=== PATIENT | male | born 1970 | race Caucasian/White ===

== ENCOUNTER 2018-02-01 15:13 | Emergency (ER) | payer MEDICARE ==
[2018-02-01 15:44] LABS: INFLUENZA A NEGATIVE (NEGATIVE); INFLUENZA B POSITIVE (NEGATIVE)
[2018-02-01] MEDS ORDERED: OSTELTAMIVIR 75 MG CAP PO ONE (16:52)
[2018-02-01] MEDS ORDERED: IBUPROFEN 600 MG TABLET PO ONE (16:52)
--- NOTE | 2018-02-01 16:56 | Emergency Department Record ---
History of Present Illness - General Chief Complaint: Fever Stated Complaint: COUGH AND FEVER Time Seen by Provider: 02/01/18 15:33 Source: Patient Mode of Arrival: Ambulatory Limitations: No limitations - History of Present Illness Initial Comments: productive green cough. ava DONNELLY Complaint: Other Onset/Timin -: Days(s) Associated Symptoms: Cough, Headache, Myalgias, Nasal congestion, Rhinorrhea Treatments Prior to Arrival: None - Related Data Previous Rx's Medication Instructions Recorded Oseltamivir Phosphate [Tamiflu] 75 mg PO BID #9 capsule 02/01/18 Allergies Allergy/AdvReac Type Severity Reaction Status Date / Time No Known Drug Allergies Allergy Verified 02/01/18 15:27 Travel Screening - Travel/Exposure Within Last 30 Days Have you traveled within the last 30 days?: No - Travel/Exposure Within Last Year Have you traveled outside the [place] in the last year?: No - Additonal Travel Details Have you been exposed to anyone with a communicable illness?: No - Travel Symptoms Symptom Screening: None Review of Systems Reviewed: No additional complaints except as noted below Constitutional: Reports: As per HPI. Denies: Chills, Fever, Malaise, Night sweats, Weakness, Weight change Eyes: Reports: As per HPI. Denies: Eye discharge, Eye pain, Photophobia, Vision change ENT: Reports: As per HPI. Denies: Congestion, Dental pain, Ear pain, Epistaxis , Hearing loss, Throat pain Respiratory: Reports: As per HPI. Denies: Cough, Dyspnea, Hemoptysis, Stridor, Wheezes Cardiovascular: Reports: As per HPI. Denies: Arrhythmia, Chest pain, Dyspnea on exertion, Edema, Murmurs, Orthopnea, Palpitations, Paroxysmal nocturnal dyspnea, Rheumatic Fever, Syncope Endocrine: Reports: As per HPI. Denies: Fatigue, Heat or cold intolerance, Polydipsia, Polyuria Gastrointestinal: Reports: As per HPI. Denies: Abdominal pain, Constipation, Diarrhea, Hematemesis, Hematochezia, Melena, Nausea, Vomiting Genitourinary: Reports: As per HPI. Denies: Dysuria, Frequency, Hematuria, Incontinence, Retention, Testicular pain, Testicular mass, Urgency Musculoskeletal: Reports: As per HPI. Denies: Arthralgia, Back pain, Gout, Joint swelling, Myalgia, Neck pain Skin: Reports: As per HPI. Denies: Bruising, Change in color, Change in hair/ nails, Lesions, Pruritus, Rash Neurological: Reports: As per HPI. Denies: Abnormal gait, Confusion, Headache, Numbness, Paresthesias, Seizure, Tingling, Tremors, Vertigo, Weakness Psychiatric: Reports: As per HPI. Denies: Anxiety, Auditory hallucinations, Depression, Homicidal thoughts, Suicidal thoughts, Visual hallucinations Hematological/Lymphatic: Reports: As per HPI. Denies: Anemia, Blood Clots, Easy bleeding, Easy bruising, Swollen glands Past Medical History - SOCIAL HISTORY Smoking Status: Current every day smoker Alcohol Use: None Drug Use: None - RESPIRATORY Hx Respiratory Disorders: Yes Hx Bronchitis: Yes Hx COPD: Yes - CARDIOVASCULAR Hx Cardio Disorders: No - NEURO Comment:: [place] with sign language - GI Hx GI Disorders: No - Hx Genitourinary Disorders: No - ENDOCRINE Hx Endocrine Disorders: No - MUSCULOSKELETAL Hx Musculoskeletal Disorders: No - PSYCH Hx Psych Problems: No - HEMATOLOGY/ONCOLOGY Hx Hematology/Oncology Disorders: No Family Medical History Any Significant Family History?: No Physical Exam - General General Appearance: Alert, Oriented x3, Cooperative, Mild distress - Head Head exam: Normal inspection - Eye Eye exam: Normal appearance, PERRL, EOMI Pupils: Normal accommodation - ENT ENT exam: Normal exam, Mucous membranes moist, Normal external ear exam, Normal orophraynx, TM's normal bilaterally Ear exam: Normal external inspection, Other ([place]). negative: External canal tenderness Nasal Exam: Normal inspection. negative: Discharge, Sinus tenderness Mouth exam: Normal external inspection, Tongue normal Teeth exam: Normal inspection. negative: Dental caries Throat exam: Normal inspection. negative: Tonsillar erythema, Tonsillar exudate - Neck Neck exam: Normal inspection, Full ROM. negative: Tenderness - Respiratory Respiratory exam: Normal lung sounds bilaterally. negative: Respiratory distress - Cardiovascular Cardiovascular Exam: Regular rate, Normal rhythm, Normal heart sounds - GI/Abdominal GI/Abdominal exam: Soft, Normal bowel sounds. negative: Tenderness - Rectal Rectal exam: Deferred - exam: Deferred - Extremities Extremities exam: Normal inspection, Full ROM, Normal capillary refill. negative: Tenderness - Back Back exam: Reports: Normal inspection, Full ROM. Denies: Muscle spasm, Rash noted, Tenderness - Neurological Neurological exam: Alert, CN II-XII intact, Normal gait, Oriented X3 - Psychiatric Psychiatric exam: Normal affect, Normal mood - Skin Skin exam: Dry, Intact, Normal color, Warm Course Vital Signs 02/01/18 15:20 Temperature 98.9 F Pulse Rate 79 Respiratory 20 Rate Blood Pressure 130/93 Pulse Ox 98 Medical Decision Making - Lab Data Lab Results 02/01/18 Range/Units 15:26 Influenza Type A Ag Negative (NEGATIVE) Influenza Type B Ag Positive H (NEGATIVE) Disposition Disposition: Discharge Clinical Impression: Influenza B Disposition: Home, Self-Care Condition: (1) Good Instructions: Fever in Adults (ED), Influenza (ED) Additional Instructions: follow up with family doctor. return sooner if worse. push fluids. rest Prescriptions: Oseltamivir Phosphate [Tamiflu] 75 mg PO BID #9 capsule Forms: Patient Portal Access Quality - Quality Measures Quality Measures: N/A - Blood Pressure Screening Does Patient Have Any of the Following: No Blood Pressure Classification: Hypertensive Reading Systolic Measurement: 130 Diastolic Measurement: 93 Screening for High Blood Pressure: < Pre-Hypertensive BP, F/U Documented > [ G8950] Pre-Hypertensive Follow-up Interventions: Follow-up with rescreen every year.
--- NOTE | 2018-02-02 15:44 | RADIOLOGY REPORT ---
DATE: 02/01/2018 at 4:08 p.m. EXAM: TWO-VIEW, CHEST. HISTORY: Productive cough, wheezing, and difficulty in breathing. TECHNIQUE: PA and lateral views. COMPARISON: Two-view, chest dated 12/18/2015. FINDINGS: Stable heart size. Minor linear fibrosis or discoid atelectasis in the left lower lung. No acute alveolar infiltrate seen. No pleural effusion or pneumothorax evident. IMPRESSION: 1. MINOR LINEAR FIBROSIS OR DISCOID ATELECTASIS IN THE [place]. 2. HEART SIZE WITHIN NORMAL LIMITS. JOB NUMBER: [id number] MTDD
== END 2018-02-01 17:14 | disposition home or self-care (01) ==
LOC: ER 15:13
DX: J10.1 Influenza due to other identified influenza virus with other respiratory manifestations (principal); R06.00 Dyspnea, unspecified; J44.9 Chronic obstructive pulmonary disease, unspecified; F17.210 Nicotine dependence, cigarettes, uncomplicated
CPT/HCPCS: 71046; 87400; 87880; 99283

== ENCOUNTER 2018-05-10 18:08 | Emergency (ER) | payer MEDICARE ==
--- NOTE | 2018-05-10 18:40 | Emergency Department Record ---
History of Present Illness - General Chief complaint: Extremity Problem Stated complaint: LEFT HAND AND ARM NUMB Time Seen by Provider: 05/10/18 18:34 Source: Patient Mode of Arrival: Ambulatory Limitations: No limitations - History of Present Illness Initial comments: 48 yo male presents to ED for evaluation of left elbow pain and numbness that radiates to the left hand. Patient reports that his symptoms have been present for the past 5 days. Patient also reports mild pain to the left shoulder as well. Patient denies chest pain or difficulty in breathing symptoms, denies previous heart or lung problems. Patient does report that his left "boob" has been painful for the past 9 years with movement following a cyst removed 11 years ago, reports that another cyst may be present. Patient does report that he has been playing softball for the past 3 weeks however and his pain symptoms are worse with movement of the extremity. MD Complaint: Extremity pain Onset/Timin -: Days(s) Location: Left, Arm History of Same: No Radiation: Distal Severity scale (1-10): 5 Quality: Aching Consistency: Intermittent Improves with: Rest Associated Symptoms: Denies other symptoms - Related Data Home Medications Medication Instructions Recorded Confirmed Last Taken No Home Med [NO HOME MEDS] 05/10/18 05/10/18 Unknown Allergies Allergy/AdvReac Type Severity Reaction Status Date / Time No Known Drug Allergies Allergy Verified 05/10/18 18:22 Travel Screening - Travel/Exposure Within Last 30 Days Have you traveled within the last 30 days?: No - Travel/Exposure Within Last Year Have you traveled outside the [place] in the last year?: No - Additonal Travel Details Have you been exposed to anyone with a communicable illness?: No - Travel Symptoms Symptom Screening: None Review of Systems Constitutional: Denies: Chills, Fever, Malaise, Night sweats Eyes: Denies: Eye discharge, Eye pain ENT: Denies: Congestion, Ear pain, Epistaxis Respiratory: Denies: Cough, Dyspnea Cardiovascular: Denies: Chest pain, Dyspnea on exertion Endocrine: Denies: Fatigue, Heat or cold intolerance Gastrointestinal: Denies: Abdominal pain, Nausea, Vomiting Genitourinary: Denies: Incontinence, Retention Musculoskeletal: Reports: Arthralgia. Denies: Back pain, Gout, Joint swelling Skin: Denies: Bruising, Change in color Neurological: Denies: Abnormal gait, Confusion, Headache Psychiatric: Denies: Anxiety Hematological/Lymphatic: Denies: Anemia, Blood Clots Past Medical History - SOCIAL HISTORY Smoking Status: Current every day smoker Alcohol Use: None Drug Use: None - RESPIRATORY Hx Respiratory Disorders: Yes Hx Bronchitis: Yes Hx COPD: Yes - CARDIOVASCULAR Hx Cardio Disorders: No - NEURO Hx Neuro Disorders: No Comment:: [place] with sign language - GI Hx GI Disorders: No - Hx Genitourinary Disorders: No - ENDOCRINE Hx Endocrine Disorders: No - MUSCULOSKELETAL Hx Musculoskeletal Disorders: No - PSYCH Hx Psych Problems: No - HEMATOLOGY/ONCOLOGY Hx Hematology/Oncology Disorders: No Family Medical History Any Significant Family History?: Yes Physical Exam - General General Appearance: Alert, Oriented x3, Cooperative, No acute distress Limitations: Other (Patient is deaf, mother at the bedside translates.) - Head Head exam: Atraumatic, Normocephalic, Normal inspection Head exam detail: negative: Abrasion, Contusion, Tellez's sign, General tenderness, Hematoma, Laceration - Eye Eye exam: Normal appearance. negative: Conjunctival injection, Periorbital swelling, Periorbital tenderness, Scleral icterus - ENT Ear exam: negative: Auricular hematoma, Auricular trauma Nasal Exam: negative: Active bleeding, Discharge, Dried blood, Foreign body Mouth exam: negative: Drooling, Laceration, Muffled voice, Tongue elevation - Neck Neck exam: Normal inspection. negative: Meningismus, Tenderness - Respiratory Respiratory exam: Normal lung sounds bilaterally. negative: Respiratory distress, Rhonchi, Stridor, Wheezes - Cardiovascular Cardiovascular Exam: Regular rate, Normal rhythm, Normal heart sounds - GI/Abdominal GI/Abdominal exam: Soft. negative: Rebound, Rigid, Tenderness - Rectal Rectal exam: Deferred - exam: Deferred - Extremities Extremities exam: Tenderness, Other (TTP over the acromion anteriorly, and palpation of the ulnar canal at the elbow reproduces the patient's numbness and "shooting pain" to the finger tips. Patient has a strong distal radial pulse, cap refill < 2 seconds, and cricket coach strength is 5/5 and symmetric bilaterally.). negative: Calf tenderness, Pedal edema - Back Back exam: Denies: CVA tenderness (R), CVA tenderness (L) - Neurological Neurological exam: Alert, Normal gait, Oriented X3 - Psychiatric Psychiatric exam: Normal affect, Normal mood - Skin Skin exam: Normal color. negative: Abrasion Type of lesion: negative: abrasion Course Vital Signs 05/10/18 18:12 Temperature 98.7 F Pulse Rate 99 H Respiratory 20 Rate Blood Pressure 149/93 Pulse Ox 98 - Reevaluation(s) Reevaluation #1: 05/10/18 19:15 EKG: NSR 82 Normal axis, normal intervals No acute ST-T wave changes are present Patient was updated on all results, examination of the chest wall reveals point tenderness to the left para-sternal border. Palpation of the left ulnar gutter reproduces pain symptoms of the forearm and tingling of the 4th/5th digits. Patient's shoulder is also TTP over the left acromion process. Patient's symptoms are reproducible on examination. Will treat for left upper extremity inflammation of the shoulder and ulna with rest and ibuprofen as directed. Patient appears stable for discharge at this time. Disposition Disposition: Discharge Clinical Impression: Ulnar nerve entrapment at elbow Qualifiers: Laterality: left Qualified Code(s): G56.22 - Lesion of ulnar nerve, left upper limb Shoulder pain, left Qualifiers: Chronicity: acute Qualified Code(s): M25.512 - Pain in left shoulder Disposition: Home, Self-Care Condition: (2) Stable Instructions: Cubital Tunnel Syndrome (ED) Additional Instructions: Return to ED if your symptoms worsen or if you have any concerns. Ibuprofen 600-800 mg every 6 hours as needed. Reduce repetitive activity of the left arm. Follow-up with your family doctor in 3-5 days as directed. Forms: Patient Portal Access Time of Disposition: 19:19 Quality - Quality Measures Quality Measures: N/A - Blood Pressure Screening Does Patient Have Any of the Following: No Blood Pressure Classification: Hypertensive Reading Systolic Measurement: 149 Diastolic Measurement: 93 Screening for High Blood Pressure: < First Hypertensive BP, F/U Documented > [ G8950] First Hypertensive Follow-up Interventions: Referral to alternative/primary care provider.
== END 2018-05-10 19:27 | disposition home or self-care (01) ==
LOC: ER 18:08
DX: G56.22 Lesion of ulnar nerve, left upper limb (principal); M25.512 Pain in left shoulder; J44.9 Chronic obstructive pulmonary disease, unspecified; F17.210 Nicotine dependence, cigarettes, uncomplicated
CPT/HCPCS: 93005; 93010; 99284